=== PATIENT | male | born 1995 | race Caucasian/White ===

== ENCOUNTER 2019-07-15 12:10 | Outpatient (CLI) | payer OTHER | END 2019-07-15 23:59 | disposition short-term general hospital (02) | LOC: EMS 12:10 | PROVIDERS: ATTEND Surgery | DX: R00.1 Bradycardia, unspecified (principal) | CPT/HCPCS: A0425; A0429 ==

== ENCOUNTER 2019-07-20 14:01 | Emergency (ER) | payer OTHER ==
[2019-07-20 14:43] LABS: BASOPHILS % (AUTO) 0.3 %; EOSINOPHILS # (AUTO) 0.1 10^3/uL (0.0-0.7); EOSINOPHILS % (AUTO) 0.8 %; HGB - HEMOGLOBIN 14.2 g/dL (14.0-18.0); LYMPHOCYTES # (AUTO) 2.2 10^3/uL (1.5-3.5); LYMPHOCYTES % (AUTO) 28.3 %; MEAN CORPUSCULAR HEMOGLOBIN 28.7 pg (27.0-31.0); MEAN CORPUSCULAR HGB CONC 33.2 g/dL (32.0-36.0); MEAN CORPUSCULAR VOLUME 86.5 fL (80.0-94.0); MEAN PLATELET VOLUME 8.7 fL (7.4-11.4); MONOCYTES # (AUTO) 0.5 10^3/uL (0.0-1.0); NEUTROPHILS % (AUTO) 64.1 %; PLT - PLATELET COUNT 310 10^3/uL (130-450); RED BLOOD COUNT 4.95 10^6/uL (4.70-6.10); RED CELL DISTRIBUTION WIDTH 12.4 % (12.0-15.0); WHITE BLOOD COUNT 7.8 x10^3/uL (4.8-10.8)
[2019-07-20 14:55] LABS: ALBUMIN 4.5 g/dL (3.2-5.5); ALBUMIN/GLOBULIN RATIO 1.1 (1.0-2.2); BILIRUBIN,TOTAL 0.6 mg/dL (0.2-1.0); TOTAL PROTEIN 8.6 g/dL (6.7-8.2)
--- NOTE | 2019-07-20 15:14 | XRAY Report ---
Reason: Chest pain Procedure Date: 07/20/2019 Accession Number: [id number] / [id number] Procedure: XR - Chest 1 View X-Ray CPT Code: 44332 Final Report FULL RESULT: EXAM: CHEST RADIOGRAPHY EXAM DATE: 07/20/2019 02:41 PM. CLINICAL HISTORY: Chest pain. COMPARISON: None. TECHNIQUE: 1 view. FINDINGS: Lungs/Pleura: No focal opacities evident. No pleural effusion. No pneumothorax. Mediastinum: Within exam limitations, the cardiomediastinal contour is normal. Other: None. IMPRESSION: Normal single view chest. RADIA
[2019-07-20 16:37] VITALS: BP 137/109
--- NOTE | 2019-07-20 19:33 | ED Physician Documentation ---
PD HPI CHEST PAIN - Stated complaint Stated Complaint: CHEST PX - Chief complaint Chief Complaint: Cardiac - History obtained from History obtained from: Patient (23 yo M who presents with left chest pain radiating to the arm for the last week[place] and apparently had an abnormal EKG and there was some concern for WPW so he was referred over to [facility]. He had a cardiac workup there which was negative and he was scheduled with a food service director August 18. He has had persistent left chest pain since then but somewhat worse today so he presented. CP not associated w/ activity or rest, and he cannot identify any other alleviating or exacerbating factors. He has no associated fever, chills, cough or URI sx, dyspnea, abd pain, n/v/d, dysuria, dizziness or weakness. He denies any trauma to the area or heavy lifting. He was not put on any medication after his recent visit at [facility]. He has not taken any otc medication for the pain. Pt has no hx/o DM, tobacco abuse or drug abuse, heart disease. He has no fh of early heart disease. He is an active 23 yo M in the .) Review of Systems Constitutional: reports: Reviewed and negative Eyes: reports: Reviewed and negative Ears: reports: Reviewed and negative Nose: reports: Reviewed and negative Throat: reports: Reviewed and negative Cardiac: reports: Chest pain / pressure. denies: Palpitations, Pedal edema, Calf pain Respiratory: reports: Reviewed and negative GI: reports: Reviewed and negative Skin: reports: Reviewed and negative Musculoskeletal: reports: Reviewed and negative Neurologic: reports: Reviewed and negative PD PAST MEDICAL HISTORY - Past Medical History Past Medical History: No - Allergies Allergies/Adverse Reactions: Allergies Allergy/AdvReac Type Severity Reaction Status Date / Time No Known Drug Allergies Allergy Verified 07/20/19 14:09 - Social History Does the pt smoke?: No Smoking Status: Never smoker Does the pt drink ETOH?: Yes Does the pt have substance abuse?: No PD ED PE NORMAL - Vitals Vital signs reviewed: Yes - General General: Alert and oriented X 3, No acute distress - HEENT HEENT: Atraumatic, PERRL, Moist mucous membranes, Pharynx benign - Neck Neck: Supple, no meningeal sign, No JVD - Cardiac Cardiac: RRR, No murmur, No gallop, No rub, Strong equal pulses, Other (left chest wall pain w/ palpation 2-4th ics sternal border to mid clavicular) - Respiratory Respiratory: No respiratory distress, Clear bilaterally - Abdomen Abdomen: Normal bowel sounds, Soft, Non tender, Non distended, No organomegaly Results - Vitals Vitals: Vital Signs - 24 hr 07/20/19 07/20/19 07/20/19 14:09 14:39 16:00 Temperature 36.5 C Heart Rate 60 69 79 Respiratory 14 17 13 Rate Blood Pressure 150/100 H 141/100 H 137/109 H O2 Saturation 98 98 98 Oxygen O2 Source Room air - Labs Labs: Laboratory Tests 07/20/19 07/20/19 07/20/19 14:35 14:35 14:35 WBC 7.8 RBC 4.95 Hgb 14.2 Hct 42.8 MCV 86.5 MCH 28.7 MCHC 33.2 RDW 12.4 Plt Count 310 MPV 8.7 Neut # (Auto) 5.0 Lymph # (Auto) 2.2 Campbell # (Auto) 0.5 Eos # (Auto) 0.1 Baso # (Auto) 0.0 Absolute Nucleated RBC 0.00 Nucleated RBC % 0.0 Sodium 136 Potassium 3.6 Chloride 102 Carbon Dioxide 27 Anion Gap 7.0 BUN 16 Creatinine 1.0 Estimated GFR (MDRD) 92 Glucose 94 Calcium 10.0 Total Bilirubin 0.6 AST 22 ALT 38 Alkaline Phosphatase 61 Troponin I High Sens < 2.3 L Total Protein 8.6 H Albumin 4.5 Globulin 4.1 Albumin/Globulin Ratio 1.1 Lipase 29 PD MEDICAL DECISION MAKING - ED course Complexity details: reviewed results, re-evaluated patient, considered differential, d/w patient ED course: 23 yo M who has had persistent left chest pain for over a week. Was seen and cleared at [facility] and set up with cards for August 18. His labs today are reassuring, his trop is negative. His initial EKG showed questionable st depression in V1-3, repeat is normal. Possible RVH. Pt has reproducible left chest wall pain. He declined pain meds but I encouraged him to try ibu or tylenol for relief. He has no dyspnea or hypoxia to suggest PE. He has no signi ficant risk factors for early heart disease. I reviewed results w/ pt and will discharge home with follow up w/ cardiology as previously scheduled. He is to return if he has new or worsening chest pain, dyspnea, weakness, palpitations, nausea, or otherwise is feeling worse. I discussed mild htn w/ pt and to address w/ food service director as outpt. Departure - Departure Disposition: 01 Home, Self Care Clinical Impression: Atypical chest pain, Chest wall pain Condition: Good Instructions: ED Chest Pain NonCardiac, ED Chest Pain UKO Comments: Please keep your follow up as scheduled with cardiology next month. If you have worsening pain or it is accompanied by shortness of breath or otherwise worsening symptoms, return to the ER. Discharge Date/Time: 07/20/19 16:44
== END 2019-07-20 16:44 | disposition home or self-care (01) ==
LOC: ED 14:01
DX: R07.89 Other chest pain (principal)
CPT/HCPCS: 36415; 71045; 80053; 83690; 84484; 85025; 93005; 99284

== ENCOUNTER 2021-11-04 11:34 | Emergency (ER) | payer OTHER ==
[2021-11-04 11:46] VITALS: BP 135/88
--- NOTE | 2021-11-04 11:59 | XRAY Report ---
PROCEDURE: Foot 3 View LT INDICATIONS: Trauma TECHNIQUE: 3 views of the foot were acquired. COMPARISON: None FINDINGS: Bones: No fractures or dislocations can be seen of the third toe or elsewhere. No suspicious bony l esions. Soft tissues: No tibiotalar joint effusion. Achilles tendon appears normal. IMPRESSION: No significant plain film abnormality is seen. Reviewed by: Dax Little MD on 11/04/2021 10:58 AM VIDA Approved by: Dax Little MD on 11/04/2021 10:58 AM COROMA Station ID: [id number]
[2021-11-04] MEDS ORDERED: LIDOCAINE 2% 10 ML MDV SUBQ ONE (12:43)
[2021-11-04] MEDS ORDERED: LIDOCAINE-MPF 2% 5 ML VIAL SUBQ STA (12:47)
[2021-11-04] MEDS ORDERED: LIDOCAINE 1% 2 ML VIAL ONE (13:00)
--- NOTE | 2021-11-04 13:01 | ED Physician Documentation ---
History of Present Illness - Stated complaint Stated Complaint: L FOOT INJ - Chief complaint Chief Complaint: Laceration - History obtained from History obtained from: Patient - History of Present Illness Timing: Today Pain level max: 5 Pain level now: 4 - Additonal information Additional information: Patient is a 26-year-old male who presents to the emergency department with a left third toe injury. He states he dropped a piece of wood on the toe. It caused bruising under the toenail. Concerned about potential fracture. Tetanus up-to-date. Worse with movement, better with rest. Review of Systems Constitutional: denies: Fever, Chills GI: denies: Vomiting, Diarrhea Skin: denies: Rash Musculoskeletal: denies: Neck pain, Back pain Neurologic: denies: Headache PD PAST MEDICAL HISTORY - Past Medical History Past Medical History: No - Past Surgical History Past Surgical History: No - Present Medications Home Medications: Ambulatory Orders Medication Instructions Recorded Confirmed No Known Home Medications 11/04/21 11/04/21 - Allergies Allergies/Adverse Reactions: Allergies Allergy/AdvReac Type Severity Reaction Status Date / Time No Known Drug Allergies Allergy Verified 07/20/19 14:09 - Social History Does the pt smoke?: No Smoking Status: Never smoker Does the pt drink ETOH?: Yes Does the pt have substance abuse?: No - Immunizations Immunizations are current?: Yes Immunizations: TDAP current <10years PD ED PE NORMAL - Vitals Vital signs reviewed: Yes - General General: Alert and oriented X 3, No acute distress - Derm Derm: Warm and dry - Extremities Extremities: Other (Small abrasion to the dorsal aspect of the left third toe. There is a small subungual hematoma as well. No lacerations to repair. Diffusely tender to palpation. Neurovascular intact.) - Neuro Neuro: Alert and oriented X 3 Results - Vitals Vitals: Vital Signs - 24 hr 11/04/21 11:44 Temperature 37.0 C Heart Rate 81 Respiratory 19 Rate Blood Pressure 135/88 H O2 Saturation 98 Oxygen O2 Source Room air - Rads (name of study) Left foot x-ray Radiology: Final report received, EMP read contemporaneously, See rad report (No acute abnormality) PD MEDICAL DECISION MAKING - ED course Complexity details: considered differential, d/w patient ED course: 1% lidocaine was used to anesthetize the left third toe in a digital block. Subungual hematoma evacuated with electrocautery. Tolerated well. Wound was cleansed and bandaged. Tetanus up-to-date. Warnings of infection and instructions on wound care given at bedside. Patient counseled regarding signs and symptoms for which I believe and urgent re-evaluation would be necessary. Patient with good understanding of and agreement to plan and is comfortable going home at this time This document was made in part using voice recognition software. While efforts are made to proofread this document, sound alike and grammatical errors may occur. Departure - Departure Disposition: 01 Home, Self Care Clinical Impression: Abrasion Subungual hematoma of third toe of left foot Qualifiers: Encounter type: initial encounter Qualified Code(s): S90.222A - Contusion of left lesser toe(s) with damage to nail, initial encounter Condition: Poor Instructions: ED Abrasion, ED Hematoma Subungual Follow-Up: Provider,Other [Primary Care Provider] - Comments: Please soak the area in warm water 2-3 times daily. This will allow the subungual hematoma to continue to drain. Return if you worsen. Keep the wound clean. Return if you notice redness, swelling or drainage from the wound. There is no fracture on x-ray today.
== END 2021-11-04 13:18 | disposition home or self-care (01) ==
LOC: ED 11:34
DX: S90.222A Contusion of left lesser toe(s) with damage to nail, initial encounter (principal); W20.8XXA Other cause of strike by thrown, projected or falling object, initial encounter
CPT/HCPCS: 11740; 99283

== ENCOUNTER 2022-01-13 10:45 | Emergency (ER) | payer OTHER ==
[2022-01-13 10:50] VITALS: BP 152/100
--- NOTE | 2022-01-13 11:01 | ED Physician Documentation ---
PD HPI OPHTHO - Stated complaint Stated Complaint: R EYE VISION CHANGE/DISCHARGE - Chief complaint Chief Complaint: Heent - History obtained from History obtained from: Patient - History of Present Illness Timing - onset: How many days ago (2) Timing - duration: Days (2) Timing - details: Abrupt onset, Still present (He had had some runny nose and sore throat for several days and now having right ear pressure and pain and right eye discharge and crusting.) Location: Right Associated symptoms: Redness, Matting, Other (right ear pressure and right periorbital pressure). No: FB sensation, Photophobia Contributing factors: Recent URI, Wears contacts, Other ( and son have URI symptoms at home and are improving. Neither of them with conjunctival symptoms.) Similar symptoms before: Has not had sx before Recently seen: Not recently seen Review of Systems Constitutional: denies: Fever, Chills Eyes: reports: Decreased vision (seemed blurry when awoke until got crusting cleared.). denies: Loss of vision, Photophobia Nose: reports: Rhinorrhea / runny nose, Congestion, Sinus pressure / pain (right maxillary and periorbital pressure) Respiratory: denies: Dyspnea, Cough GI: denies: Nausea, Vomiting, Diarrhea PD PAST MEDICAL HISTORY - Past Medical History Cardiovascular: None Respiratory: None Endocrine/Autoimmune: None - Past Surgical History Past Surgical History: No - Present Medications Home Medications: Ambulatory Orders Medication Instructions Recorded Confirmed Amoxicillin 500 mg PO TID #20 cap 01/13/22 Neomycin Mir/Baci Zn/Poly/Hc 1 applic RIGHTEYE QID 4 Days #3.5 01/13/22 [Carmelo-Polycin Hc Eye Ointment] gm - Allergies Allergies/Adverse Reactions: Allergies Allergy/AdvReac Type Severity Reaction Status Date / Time No Known Drug Allergies Allergy Verified 07/20/19 14:09 - Social History Does the pt smoke?: No Smoking Status: Never smoker Does the pt drink ETOH?: Yes Does the pt have substance abuse?: No - Immunizations Immunizations are current?: Yes Immunizations: TDAP current <10years PD ED PE NORMAL - Vitals Vital signs reviewed: Yes - General General: Alert and oriented X 3, No acute distress, Well developed/nourished - HEENT HEENT: PERRL, EOMI, Ears normal, Pharynx benign, Other (not light sensitive. Right eye hyperemic with conjunctival redness. No current discharge. ) - Neck Neck: Supple, no meningeal sign, No adenopathy - Cardiac Cardiac: RRR, No murmur - Respiratory Respiratory: Clear bilaterally - Derm Derm: Normal color, Warm and dry, No rash Results - Vitals Vitals: Vital Signs - 24 hr 01/13/22 10:48 Temperature 37.0 C Heart Rate 85 Respiratory 17 Rate Blood Pressure 152/100 H O2 Saturation 98 Oxygen O2 Source Room air PD MEDICAL DECISION MAKING - ED course Complexity details: considered differential (sounds likely sinus infection atop URI, showing itself into eye and right ear.), d/w patient Departure - Departure Disposition: Home, Self Care Clinical Impression: Conjunctivitis Qualifiers: Conjunctivitis type: acute Acute conjunctivitis type: unspecified Laterality: right Qualified Code(s): H10.31 - Unspecified acute conjunctivitis, right eye Upper respiratory infection Qualifiers: URI type: unspecified URI Qualified Code(s): J06.9 - Acute upper respiratory infection, unspecified Condition: Stable Record reviewed to determine appropriate education?: Yes Follow-Up: [facility] [Provider Group] Prescriptions: Amoxicillin 500 mg PO TID #20 cap Neomycin Mir/Baci Zn/Poly/Hc [Carmelo-Polycin Hc Eye Ointment] 1 applic RIGHTEYE QID 4 Days #3.5 gm Comments: Your symptoms do sound like some conjunctivitis. This can be still viral at times related to your head cold. However with the localized Seshan of the right eye along with some eustachian tube/eardrum pressure and redness, consideration would be sinus infection as both of the sites lead to her draining to the sinus area. We can treat this with Polysporin eye ointment 4 times daily as well as amoxicillin antibiotic orally 3 times daily. Continue with any cough medicine or antihistamines if needed for congestion related to the viral component/head cold. Stay well-hydrated. I transmitted your prescriptions to [facility] in [place]. I would anticipate improvement over the next few days. Discharge Date/Time: 01/13/22 11:27
[2022-01-13] MEDS ORDERED: AMOXICILLIN 250 MG CAPSULE PO STA (11:13)
== END 2022-01-13 11:27 | disposition home or self-care (01) ==
LOC: ED 10:45
DX: H10.31 Unspecified acute conjunctivitis, right eye (principal); J06.9 Acute upper respiratory infection, unspecified
CPT/HCPCS: 99282; A9270